=== PATIENT | male | born 1935 | race Caucasian/White ===

== ENCOUNTER 2017-06-02 19:50 | Emergency (ER) | payer OTHER ==
[2017-06-02 21:34] LABS: BASOPHIL % 0.6 % (0-2); PLATELET COUNT 304 x10^3mcL (130-400)
[2017-06-02 21:35] LABS: RED CELL DISTRIBUTION WIDTH 14.6 % (11.5-14.5)
[2017-06-02 21:43] LABS: CALCIUM 8.5 mg/dL (8.5-10.1); CARBON DIOXIDE 29.1 mmol/L (21-32); CHLORIDE SERUM 108 mmol/L (98-107); GLUCOSE SERUM 99 mg/dL (74-106); POTASSIUM SERUM 3.7 mmol/L (3.5-5.1); SODIUM SERUM 142 mmol/L (136-145)
[2017-06-02 21:48] LABS: ALBUMIN 2.8 g/dL (3.4-5.0); ALKALINE PHOSPHATASE 98 U/L (46-116); ALT/SGPT 15 U/L (16-63); AST/SGOT 15 U/L (15-37); BILIRUBIN TOTAL 0.2 mg/dL (0.20-1.00); TOTAL PROTEIN, SERUM 6.4 g/dL (6.4-8.2)
[2017-06-02 22:07] LABS: UA SPECIFIC GRAVITY 1.025 (1.005-1.035); microscopic required? YES; urine erythrocyte 3+ (NEGATIVE)
[2017-06-02 23:03] VITALS: BP 138/85
== END 2017-06-02 22:40 | disposition home or self-care (01) ==
LOC: ED 19:50
PROVIDERS: Emergency Medicine
DX: T83.098A Other mechanical complication of other urinary catheter, initial encounter (principal); N39.0 Urinary tract infection, site not specified
CPT/HCPCS: 36415